=== PATIENT | female | born 1965 | race Caucasian/White ===

== ENCOUNTER 2023-03-13 11:34 | Observation (INO) | payer OTHER ==
[~2023-03-13] VITALS: Ht 162.6 cm; Wt 70.3 kg
[2023-03-13 11:56] VITALS: BP 112/73; PULSE 77; RESP 18; TEMP 96.7; O2SAT 98
--- NOTE | 2023-03-13 13:40 | NUR ---
Pt bibs for wound at bottom of L foot that she has had for months. Pt states she also had fever/chills yesterday. Pt states she is taking px antibiotics and the px was changed today, has not started new px. Pt is a/o x 4, vss, no ss of acute distress, breathing equal and unlabored, speech clear. Culture obtained/labeled and handed to laborer pole crew.
[2023-03-13] MEDS ORDERED: cefTRIAXone 1,000 MG VIAL ONE (13:59)
[2023-03-13 14:00] LABS: BASOPHILS % (AUTO) 0.7 % (0.0-2.0); EOSINOPHILS # (AUTO) 0.1 K/uL (0-0.4); EOSINOPHILS % (AUTO) 2.5 % (0.0-4.0); HEMATOCRIT 37.1 % (36-48); HEMOGLOBIN 12.6 g/dL (12.0-16.0); LYMPHOCYTES # (AUTO) 0.9 K/uL (2.5-16.5); LYMPHOCYTES % (AUTO) 16.8 % (20.5-51.1); MEAN CORPUSCULAR HEMOGLOBIN 29 pg (27-31); MEAN CORPUSCULAR HGB CONC 34 g/dL (33-37); MEAN CORPUSCULAR VOLUME 85.2 fL (80-94); MONOCYTES # (AUTO) 0.4 K/uL (0.8-1.0); NEUTROPHILS # (AUTO) 3.8 K/uL (1.8-7.7); PLATELET COUNT (AUTO) 244 K/uL (140-450); RED BLOOD CELL COUNT(AUTO) 4.36 MIL/uL (4.20-5.40); RED CELL DISTRIBUTION WIDTH 13.4 % (11.6-13.7); WHITE BLOOD COUNT (AUTO) 5.3 K/uL (4.8-10.8)
[2023-03-13] MEDS ORDERED: VANCOMYCIN 1,000 MG in DEXTROSE 5% 250 ML IV ONE (14:40)
[2023-03-13 14:48] LABS: ALBUMIN 3.9 g/dL (3.4-5.0); ANION GAP 14.8 (8-16); ASPARTATE AMINOTRANSFERASE 16 U/L (15-37); CARBON DIOXIDE 27.7 mmol/L (21-32); CHLORIDE 102 mmol/L (98-107); CREATININE 1.2 mg/dL (0.6-1.3); GFR ARICAN-AMERICAN 60 mL/min (>90); GLUCOSE 200 mg/dL (74-106); POTASSIUM 4.5 mmol/L (3.5-5.1); SODIUM SERUM 140 mmol/L (136-145); TOTAL BILIRUBIN 0.9 mg/dL (0.0-1.0); UREA NITROGEN, BLOOD 33 mg/dL (7-18)
[2023-03-13] MEDS ORDERED: VANCOMYCIN 1,000 MG VIAL ONE (15:24)
[2023-03-13] MEDS ORDERED: LORazepam 1 MG TAB PO PRN (16:20)
[2023-03-13] MEDS ORDERED: KCL 20 MEQ IN 100 mL PREMIX 200 ML IV PRN (16:20)
[2023-03-13] MEDS ORDERED: ONDANSETRON 4 MG/2 ML VIAL IVP PRN (16:20)
[2023-03-13] MEDS ORDERED: ZOLPIDEM 5 MG TAB PO PRN (16:20)
[2023-03-13] MEDS ORDERED: VANCOMYCIN PER PHARMACY MC PRN (16:20)
[2023-03-13] MEDS ORDERED: MORPHINE SULFATE 4 MG/ML SYR IVP PRN (16:20)
[2023-03-13] MEDS ORDERED: POTASSIUM CHLORIDE 10 MEQ TABER PO PRN (16:20)
[2023-03-13] MEDS ORDERED: MAG SULF 2000 MG/WATER PREMIX 50 ML IV PRN (16:20)
[2023-03-13] MEDS ORDERED: HYDROcodone/APAP 5/325 MG 1 TAB TAB PO PRN (16:20)
[2023-03-13] MEDS ORDERED: ACETAMINOPHEN 325 MG TAB PO PRN (16:20)
[2023-03-13] MEDS ORDERED: MAGNESIUM OXIDE 400 MG TAB PO PRN (16:20)
--- NOTE | 2023-03-13 17:08 | NUR ---
Report given to RN Brando. Pt in stable condition.
--- NOTE | 2023-03-13 17:35 | NUR ---
RECEIVED PATIENT FROM ED. PATIENT WAS ON GURNEY, AWAKE AND COHERENT. PATIENT ABLE TO AMBULATE, BUT WITH UNSTEADY GAIT DUE TO DIABETIC WOUND ON LEFT FOOT. PATIENT REPORT RECEIVED AND WILL ENDORSE FOR ADMISSION TO THE ONCOMING NURSE.
--- NOTE | 2023-03-13 18:50 | NUR ---
PATIENT COMPLAINED OF HEADACHE. PRESCRIBED TYLENOL PRN GIVEN.
--- NOTE | 2023-03-13 19:20 | NUR ---
ENDORSED PATIENT TO PM NURSE FOR CONTINUATION OF CARE.
--- NOTE | 2023-03-13 19:21 | NUR ---
RECEIVED PT FROM MORNING SHIFT NURSE. PT IS AOX4, AMBULATORY, ABLE TO VERBALIZE NEEDS AND ABLE TO FOLLOW COMMANDS. PT IS ON ROOM AIR AND ON CCHO DIET. PT IV IS ON LEFT AC GAUGE 20, SALINE LOCK PT HAS LEFT FOOT CLOSED WOUND. PT DENIES PAIN AT THIS TIME. NO S/S OF RESPIRATORY DISTRESS NOTED. ALL SAFETY MEASURES IMPLEMENTED. BED IN LOW POSITION, BED WHEELS ON LOCK AND CALL LIGHT WITHIN REACH.
[2023-03-13 20:00] VITALS: PULSE 68; RESP 18; O2SAT 99
[2023-03-13] MEDS: BLOOD GLUCOSE MONITORING 1 DEV DEV FS SCH (21:27)
--- NOTE | 2023-03-13 21:27 | NUR ---
PT BLOOD GLUCOSE IS 168. HUMALOG INSULIN 2 UNITS WAS GIVEN TO PT.
[2023-03-13] MEDS: INSULIN LISPRO SLIDING SCALE 100 UNITS/ML VIAL SUBQ PRN (21:28)
--- NOTE | 2023-03-13 23:00 | NUR ---
CLEANED THE WOUND AND WRAP IT WITH BETADINE PER DR. BRADFORD ORDER. PT DENIES PAIN AT THIS TIME. ALL SAFETY MEASURES IMPLEMENTED. BED IN LOW POSITION, BED WHEELS ON LOCK AND CALL LIGHT WITHIN REACH.
[2023-03-14] VITALS: BP 126/60; PULSE 68; RESP 18; TEMP 97.7; O2SAT 99
--- NOTE | 2023-03-14 | NUR ---
PT IS ON SLEEP. CHEST RISE AND FALL SYMMETRICALLY NOTED. RESPIRATION IS EVEN AND UNLABORED. ALL SAFETY MEASURES IMPLEMENTED. BED IN LOW POSITION, BED WHEELS ON LOCK AND CALL LIGHT WITHIN REACH.
--- NOTE | 2023-03-14 02:00 | NUR ---
CHECKED THE PT, STILL ON SLEEP. CHEST RISE AND FALL SYMMETRICALLY NOTED. RESPIRATION IS EVEN AND UNLABORED. ALL SAFETY MEASURES IMPLEMENTED. BED IN LOW POSITION, BED WHEELS ON LOCK AND CALL LIGHT WITHIN REACH.
--- NOTE | 2023-03-14 04:00 | NUR ---
PT WAS GIVEN WARM BLANKET PER PT REQUEST. NO COMPLAIN OF PAIN AT THIS. NO S/S OF RESPIRATORY DISTRESS NOTED. ALL SAFETY MEASURES IMPLEMENTED. BED IN LOW POSITION, BED WHEELS ON LOCK AND CALL LIGHT WITHIN REACH.
[2023-03-14] MEDS: BLOOD GLUCOSE MONITORING 1 DEV DEV FS SCH (06:30)
[2023-03-14] MEDS: INSULIN LISPRO SLIDING SCALE 100 UNITS/ML VIAL SUBQ PRN (06:31)
--- NOTE | 2023-03-14 06:31 | NUR ---
PT BLOOD GLUCOSE IS 156. HUMALOG INSULIN 2 UNITS WAS GIVEN TO PT.
[2023-03-14 07:01] LABS: BASOPHILS # (AUTO) 0.1 K/uL (0.00-0.22); BASOPHILS % (AUTO) 1.1 % (0.0-2.0); EOSINOPHILS # (AUTO) 0.2 K/uL (0-0.4); EOSINOPHILS % (AUTO) 4.5 % (0.0-4.0); HEMATOCRIT 34.3 % (36-48); HEMOGLOBIN 11.5 g/dL (12.0-16.0); LYMPHOCYTES # (AUTO) 1.4 K/uL (2.5-16.5); LYMPHOCYTES % (AUTO) 27.1 % (20.5-51.1); MEAN CORPUSCULAR HEMOGLOBIN 29 pg (27-31); MEAN CORPUSCULAR HGB CONC 34 g/dL (33-37); MEAN CORPUSCULAR VOLUME 85.1 fL (80-94); MONOCYTES # (AUTO) 0.6 K/uL (0.8-1.0); MONOCYTES % (AUTO) 11.1 % (1.7-9.3); NEUTROPHILS # (AUTO) 2.9 K/uL (1.8-7.7); NEUTROPHILS % (AUTO) 56.2 % (42.2-75.2); PLATELET COUNT (AUTO) 225 K/uL (140-450); RED BLOOD CELL COUNT(AUTO) 4.03 MIL/uL (4.20-5.40); RED CELL DISTRIBUTION WIDTH 13.1 % (11.6-13.7); WHITE BLOOD COUNT (AUTO) 5.1 K/uL (4.8-10.8)
--- NOTE | 2023-03-14 07:17 | NUR ---
PT IS STABLE. ENDORSED PT TO MORNING SHIFT NURSE FOR CONTINUITY OF CARE.
--- NOTE | 2023-03-14 07:18 | NUR ---
RECEIVED REPORT FROM WOOD CALKER NURSE FOR CONTINUITY OF CARE. PT IS AWAKE, NO SIGN OF DISTRESS. CALL LIGHT WITHIN REACH.
[2023-03-14 08:00] VITALS: BP 131/69; PULSE 69; RESP 17; TEMP 96.5; O2SAT 100
[2023-03-14 08:10] LABS: CARBON DIOXIDE 28.6 mmol/L (21-32); POTASSIUM 4.6 mmol/L (3.5-5.1)
--- NOTE | 2023-03-14 08:48 | NUR ---
DC [age] YRS OLD FEMALE PATIEN WAS ADMITTED FROM HOME WITH A DX OF DIABETIC WOUND INFECTION. PATIENT HAS A HX OF DM. FOOT X-RAY SHOWED NO EVIDENCE OF ACUTE OSSEOUS INJURY, MARKED SOFT TISSUE SWELLING ON METATARSOPHALANGEAL JOINT. ADMINISTERED IVF IV ABX VANCOMYCIN AND ROCEPHIN AND CONTINUED HOME MEDS SEEN BY PODIATRY DR BRADFORD STATED NO SURGICAL INTERVENTION . ID AWAITING FOR CULTURE RESULT AND RECOMMENDED MRI TO R/O OSTEOMYELITIS. DC PLAN TO GO HOME WITH HOME HEALTH FOR WOUND CARE. CM TO FOLLOW
[2023-03-14] MEDS ORDERED: DOCUSATE SODIUM 100 MG GELCAP PO SCH (09:00)
[2023-03-14] MEDS ORDERED: ENOXAPARIN 40 MG/0.4 ML SYR SUBQ SCH (09:00)
--- NOTE | 2023-03-14 09:03 | NUR ---
PATIENT HAS BEEN SCREENED AND CATEGORIZED HIGH NUTRITION RISK. PATIENT WILL BE SEEN WITHIN 1-2 DAYS OF ADMISSION. 03/14/23-03/15/[address]
[2023-03-14] MEDS ORDERED: VANCOMYCIN 1,000 MG in DEXTROSE 5% 250 ML IV SCH (10:00)
[2023-03-14 10:12] VITALS: BP 131/69; PULSE 69; RESP 16; TEMP 96.5
--- NOTE | 2023-03-14 11:50 | NUR ---
PT WAS DISCHARGED, PICKED UP BY MOTHER. LEFT VIA WHEELCHAIR. PT IS STABLE, REMOVED ID BAND AND IV, WOUND CARE DONE.
== END 2023-03-14 12:28 | disposition home or self-care (01) ==
LOC: MED 11:34 → MMU 16:18 → MTU 16:34
PROVIDERS: ADMIT Internal Medicine; ATTEND Internal Medicine
DX: E11.621 Type 2 diabetes mellitus with foot ulcer (principal); L97.529 Non-pressure chronic ulcer of other part of left foot with unspecified severity; L08.9 Local infection of the skin and subcutaneous tissue, unspecified; L03.116 Cellulitis of left lower limb; Z79.899 Other long term (current) drug therapy
CPT/HCPCS: 36415; 73630; 80048; 80053; 82948; 83605; 83735; 84484; 85025; 87040; 87070; 87081; 87205; 96365; 96366; 96367; 96372; 99284; G0378; J0696; J1650; J3370; J7060; 87075

== ENCOUNTER 2024-07-03 01:52 | Emergency (ER) | payer OTHER ==
[~2024-07-03] VITALS: Ht 162.6 cm; Wt 55.3 kg
[2024-07-03 02:05] VITALS: BP 91/54; PULSE 73; RESP 18; TEMP 97.2; O2SAT 99
[2024-07-03] MEDS: VANCOMYCIN 1,000 MG in DEXTROSE 5% 250 ML IV ONE (02:20)
[2024-07-03] MEDS ORDERED: PIPERACILLIN/TAZOBACTAM 3.375 GM VIAL IV ONE (02:37)
[2024-07-03] MEDS: PIPERACILLIN/TAZOBACTAM 3.375 GM in DEXTROSE 5% 50 ML IV ONE (02:42)
[2024-07-03 02:55] LABS: ANION GAP 10.8 (8-16); CALCIUM 9.3 mg/dL (8.5-10.1); CREATININE 1.6 mg/dL (0.6-1.3); POTASSIUM 3.8 mmol/L (3.5-5.1)
[2024-07-03 02:58] LABS: RED BLOOD CELL COUNT(AUTO) 4.33 MIL/uL (4.20-5.40); WHITE BLOOD COUNT (AUTO) 5.6 K/uL (4.8-10.8)
[2024-07-03 02:59] LABS: HEMOGLOBIN 12.4 g/dL (12.0-16.0); MEAN CORPUSCULAR HEMOGLOBIN 29 pg (27-31); MEAN CORPUSCULAR HGB CONC 34 g/dL (33-37); MEAN CORPUSCULAR VOLUME 85.5 fL (80-94); NEUTROPHILS % (AUTO) 59.9 % (42.2-75.2); PLATELET COUNT (AUTO) 212 K/uL (140-450); RED CELL DISTRIBUTION WIDTH 13.5 % (11.6-13.7)
[2024-07-03 03:00] LABS: BASOPHILS # (AUTO) 0.1 K/uL (0.00-0.22); BASOPHILS % (AUTO) 1.4 % (0.0-2.0); EOSINOPHILS # (AUTO) 0.2 K/uL (0-0.4); EOSINOPHILS % (AUTO) 2.9 % (0.0-4.0); LYMPHOCYTES # (AUTO) 1.6 K/uL (2.5-16.5); LYMPHOCYTES % (AUTO) 28.3 % (20.5-51.1); MONOCYTES # (AUTO) 0.4 K/uL (0.8-1.0); MONOCYTES % (AUTO) 7.5 % (1.7-9.3); NEUTROPHILS # (AUTO) 3.4 K/uL (1.8-7.7)
[2024-07-03] MEDS ORDERED: VANCOMYCIN 1,000 MG VIAL ONE (03:16)
[2024-07-03] MEDS ORDERED: CEPH-588 PO (04:14)
[2024-07-03 04:18] VITALS: BP 123/59; PULSE 63; RESP 14; O2SAT 100
== END 2024-07-03 05:31 | disposition home or self-care (01) ==
LOC: MED 01:52
DX: E11.621 Type 2 diabetes mellitus with foot ulcer (principal); Z79.899 Other long term (current) drug therapy
CPT/HCPCS: 36415; 80048; 85025; 87040; 96365; 96366; 96367; 99284; J2543; J3370